=== PATIENT | female | born 2005 | race Two or more races ===

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

== ENCOUNTER 2024-02-09 10:29 | Outpatient (AMB) | payer OTHER, SELFPAY ==
--- NOTE | 2024-02-09 10:31 | A.OFFVIS_ITS ---
Vital Signs 02/09/24 10:35 Height 5 ft 2 in Weight 96 lb BMI 17.6 BP 100/60 Intake Visit Reasons: excessive and frequent menses/Referral Loading Machine Operator Services: Loading Machine Operator Present Information Interpreted: clinical only Powder And Primer Canning Leader: Powder And Primer Canning Leader Present Allergies Penicillins Allergy (Intermediate, Verified 02/09/24 10:35) rash Medication List - Last Reconciled 02/09/24 by Sydney Méndez CNM ascorbate calcium (vitamin C) 500 mg PO DAILY famotidine (Pepcid) 20 mg PO BEDTIME iron fum,ps-FA-vit B,C#18-Lact 130 mg iron -1,250 mcg (Fusion Plus) 1 cap PO BEDTIME metoprolol succinate ER 12.5 mg (1/2 x 25 mg) PO DAILY 90 days Is last menstrual period known: Yes Last menstrual period: 02/07/24 HPI HPI excessive and frequent menses/Referral: Details: Patient is seen here as a referral from her new primary care provider and there were records that were also forwarded from her pediatric providers in [place]. She has a history of heavy periods for which this appointment is made but today she denies heavy periods she says they were heavier last year but they are much better now. She had a history of being iron deficient. I did review her recent CBC which is negative and I also reviewed all of the records that were forwarded. She has upcoming appointments with cardiology for palpitations and she is on a lower dose of metoprolol since her last [facility] visit. She is also on a medication for her stomach which she says is helping and she has an upcoming appointment with Gastroenterology either it did review with her that she had negative workup in [place] for scoliosis and for genetic abnormalities and for any clotting disorders as well. The patient is not sexually active and has no plans to be she reports her LMP is starting 2 days ago and not being all that heavy at usually lasts about 5 days. Her previous period started January 07 and it also lasted 5 days as did her period in November the around the same time of the month. She says she was on control pills to manage her periods before but she did not like them because they made her nauseous. She is studying Romanian at [employer] and has plans to start studying computer engineering in March also at [employer]. [facility] Medical History Anxiety Knee pain Low iron Surgical History No pertinent past surgical history Family History Paternal Grandmother Diabetes Father Cancer Social History Household Members: Family Both parents involved: No Caregiver staying overnight: No Housing: House Are you a primary customer care team coach to a significant other at home: No Do you presently have visiting nurse or other home services: No 75 years or older and lives alone: No Alcohol intake: never Patient Tobacco Use Status: Never used Tobacco e-Cigarette/Vaping Use: Never Used Current occupational status: unemployed Cognitive needs: No Hearing needs: No Vision needs: Yes (wear glasses) Female Reproductive History Menstrual Age of Menarche: 11 Duration of menses: 3-5 days Date of last menstrual period: 02/07/24 control method: none Total pregnancies: 0 Physical Exam Vital Signs: Last Vital Signs BP 100/60 02/09/24 10:35 BMI result Body Mass Index 17.6 Const General: healthy appearing, comfortable, no acute distress, well developed and alert Nutritional Appearance: average body habitus Orientation/consciousness: patient oriented x3 Limitations: no limitations HEENT Head: Yes normocephalic Neck Neck: Yes normal visual inspection Chest Chest palpation & inspection: normal inspection of the chest Breast/axilla inspection: normal inspection of the breasts and normal inspection of the axillae Breast/axilla palpation: normal palpation of the breasts and normal palpation of the axillae Resp Effort & Inspection: normal respiratory effort GI Inspection: Yes normal to inspection, No Abdominal wall edema and No distended Palpation (GI): Soft to palpation and nontender Other: Pelvic exam completely deferred as patient is virginal and has new complaints of abnormal discharge or indeed abnormal menses at this time. Neuro General: patient oriented x3 Assessment & Plan Assessment & Plan (1) Menorrhagia: Comment: Patient is states this was the case a year ago but is no longer the case and she is no longer having any difficulty with heavy periods. Code(s): N92.0 - Excessive and frequent menstruation with regular cycle Category: Medical Plan -----Discussed in this visit the following: healthy balanced diet, regular and consistent exercise, getting recommended health screens, doing the best she can for her particular health concerns, kegel exercises, pap smear screening and followup recommendations, mammography screening and SBE, normal changes in cycles in her life stage--- . I reviewed self-breast exam I reviewed all of the methods of control and their side effects and how they are used and how they can affect periods and that if her periods started being heavy and crampy and difficult for her again pills or their analogs patches and rings would be the simplest methods to consider prescribing especially as she is still virginal as having an IUD would require pelvic exams and I explained what those involved in detail, and there were different sets of side effects with Depo-Provera and Nexplanon as well. She has no interested in any of these methods at this time.. She has upcoming appointments in the new year with both cardiology and also with Gastroenterology.. She has not citing any particular difficulties today in those areas but she has been evaluated for them and is currently on Pepcid and metoprolol to manage these. She uses pads for her periods I did discuss that there are other options avail able. I reviewed when we start Pap smear screening and the circumstances that would require a sooner pelvic and gynecology exam. These would include becoming sexually active or having an abnormal discharge or indeed if she did have an issue with her periods going forward and needed to be seen she could just call otherwise we could see her next year whether or not she has a pelvic exam at that visit will depend on what needs she may have at the time. I reviewed that her CBC indicated that she is not currently anemic. I also reviewed condoms for safer sex should she become sexually active in the future. Today she did not need a pelvic exam and she reported her periods is not being too heavy or difficult for her so she did not need any medical intervention today other than Education around options for the future, and future expectations about pelvic exams. Records from [place] were all reviewed from her pediatric providers and specialist referrals and also her urgent care visit and primary care visits. Coding Level of Care Code New Pt Level 3 (22775) Diagnoses Menorrhagia N92.0 Time Spent (min) 50 Comment 15 reviewing her records especially from [place],30 speaking w her + PE,5 charting
[2024-02-09 10:35] VITALS: BP 100/60; BMI 17.6
== END 2024-02-09 11:07 | disposition home or self-care (01) ==
LOC: HO.HWSM 10:29
PROVIDERS: PCP Nurse Practitioner Family; Visit Provider Advanced Practice Midwife
DX: N92.0 Excessive and frequent menstruation with regular cycle (principal)
CPT/HCPCS: 99203

== ENCOUNTER → 2024-02-09 10:29 | Outpatient (BNVA) | payer OTHER, SELFPAY | PROVIDERS: PCP Nurse Practitioner Family; Visit Provider Advanced Practice Midwife | DX: N92.0 Excessive and frequent menstruation with regular cycle (principal) | CPT/HCPCS: 99202 ==

== ENCOUNTER 2024-04-14 12:44 | Outpatient (REF) | payer OTHER, SELFPAY ==
[2024-04-14 14:31] LABS: Alanine Aminotransferase 18 U/L (0-31); Albumin Level 4.2 g/dL (3.5-5.0); Alkaline Phosphatase 88 U/L (39-117); Anion Gap 11 (12-20); Aspartate Amino Transferase 20 U/L (5-31); Bilirubin Direct 0.2 mg/dL (0.0-0.5); Bilirubin Total 0.4 mg/dL (0.0-1.0); Blood Urea Nitrogen 13 mg/dL (9-16); Calcium 9.1 mg/dL (8.4-10.2); Carbon Dioxide 25 mmol/L (22-29); Chloride 108 mmol/L (96-108); Estimated Glomerular Filt Rate > 60; Glucose Random 88 mg/dL (60-115); Potassium 3.8 mmol/L (3.3-5.1); Sodium 140 mmol/L (135-145); Total Protein 7.5 g/dL (6.5-8.0)
[2024-04-14 14:46] LABS: TSH reflex Free T4 0.51 uIU/mL (0.32-4.0)
--- OUTSIDE RECORDS SUMMARY | 2024-04-14 17:33 | XMS_ITS | Clinical Summary ---
Author Organization [employer] Address [address] [facility] [address] [place] [address] Care Team Providers Care Rn Transfer Name Role Phone Unavailable Primary Care Provider [...] patient's age to complete this topic Insurance [facility] STANDARD
[2024-04-19 16:03] LABS: Metanephrine, Free 82 pg/mL (<=57); Normetanephrines, Free 75 pg/mL (<=148); Total Metanephrine, Free 157 pg/mL (<=205)
== END 2024-04-14 12:45 | disposition home or self-care (01) ==
LOC: HO.LAB 12:44
PROVIDERS: PCP Nurse Practitioner Family; Visit Provider Internal Medicine Cardiovascular Disease
DX: R00.2 Palpitations (principal)
CPT/HCPCS: 36415; 80048; 80076; 83835; 84443; 93005; 99202

== ENCOUNTER 2024-04-14 12:44 | Outpatient (AMB) | payer OTHER, SELFPAY ==
[2024-04-14 12:53] VITALS: BP 120/80; PULSE 89; BMI 17.3
--- NOTE | 2024-04-14 12:53 | A.OFFVIS_ITS ---
Vital Signs 04/14/24 12:53 Height 5 ft 2 in Weight 94 lb 12.78 oz BMI 17.3 BP 120/80 Blood Pressure Location Lt brachial Position Sitting Pulse 89 Intake Visit Reasons: hair weaver/shi magana/palpitations Intake Note: New patient just moved from [place] was seeing cardiology there for about 3 years c/o palpitations weekly for a few seconds Ginseng Farmer Required: Yes Supervisor Filter Assembly: Supervisor Filter Assembly Present Accompanied by: Aunt Allergies Penicillins Allergy (Intermediate, Verified 02/09/24 10:35) rash Medication List - Last Reconciled 04/14/24 by Ted Moran MD ascorbate calcium (vitamin C) 500 mg PO DAILY famotidine (Pepcid) 20 mg PO BEDTIME iron fum,ps-FA-vit B,C#18-Lact 130 mg iron -1,250 mcg (Fusion Plus) 1 cap PO BEDTIME metoprolol succinate ER 12.5 mg (1/2 x 25 mg) PO DAILY 90 days HPI Comments Details: Thank you for referring Matt in cardiology consultation today for symptoms of palpitations. She is accompanied by her onto acts as readers' advisory service librarian they declined a certified readers' advisory service librarian. Patient says that she has been suffering from symptoms of palpitation for the last 2-3 years. She has been managed by a care attendant in [place]. I do have a copy of hand written Holter report which has no significant arrhythmias and no SVT although there was a question about diagnose of SVT. She also has significant anemia due to iron-deficiency anemia due to menorrhagia which has improved as per the yd after iron therapy and her most recent hemoglobin is 12.9. She describes 2 types of palpitations 1 where she has fluttering in his chest which is most frequent and then 1 rapid heart rate. Symptoms prior to starting medications were happening almost on a daily basis. She would feel these symptoms mostly at rest. Symptoms would last for few seconds. She was then tried on a different medication for palpitations which actually worsened her symptoms. Then she was started on metoprolol at current dose at 12.5 mg b.i.d. which has led to significant improvement in his palpitations and now she gets palpitations only about once a week. She is currently not as bothered by her symptoms. She is concerned about overall health and trying to gain weight. She does not exercise on regular basis. She has about 1 cup of caffeine every day. No alcohol use. No other use of stimulants. She denies any other drug use. She has not had any history of syncope. Denies any shortness of breath, orthopnea, PND, chest pain. I do not see any recent chemistries including TSH in her lab work. She does have a history of anxiety [facility] Medical History Anxiety Knee pain Low iron Surgical History No pertinent past surgical history Family History Paternal Grandmother Diabetes Father Cancer Social History Household Members: Family Both parents involved: No Caregiver staying overnight: No Housing: House Are you a primary patient care provider to a significant other at home: No Do you presently have visiting nurse or other home services: No 75 years or older and lives alone: No Alcohol intake: never Patient Tobacco Use Status: Never used Tobacco e-Cigarette/Vaping Use: Never Used Current occupational status: unemployed Cognitive needs: No Hearing needs: No Vision needs: Yes (wear glasses) Female Reproductive History Menstrual Age of Menarche: 11 Review of Systems Const Denies chills, Denies fatigue, Denies fever(s), Denies frequent falls, Denies weakness, Denies weight gain and Denies weight loss Eyes Denies loss of vision ENT Denies dizziness Card Denies chest pain, Denies leg edema, Denies lightheadedness, Denies palpitations, Denies dyspnea, Denies dyspnea on exertion, Denies orthopnea and Denies other (loss of consciousness) Resp Denies cough, Denies dyspnea, Denies dyspnea on exertion and Denies wheezing GI Denies hematochezia and Denies change in stool character Denies urinary frequency and Denies dysuria Musc Denies abnormal gait, Denies muscle weakness, Denies numbness, Denies radiating pain into limb and Denies tingling Skin/Breast Denies nail changes and Denies rash Neuro Denies abnormal gait, Denies dizziness, Denies frequent falls, Denies loss of vision, Denies memory loss, Denies numbness, Denies tingling and Denies weakness Psych Denies depression and Denies memory loss Endo Denies fatigue and Denies palpitations Ganesh/Lymph Reports easy bruising and Reports other (anemia) Aller/Immun Denies wheezing Physical Exam Vital Signs: Last Vital Signs Pulse 89 04/14/24 12:53 BP 120/80 04/14/24 12:53 BMI result Body Mass Index 17.3 Const General: cooperative, comfortable, no acute distress, alert and awake Nutritional Appearance: thin and underweight Orientation/consciousness: patient oriented x3 Limitations: no limitations HEENT Head: Yes normocephalic and Yes atraumatic Neck Neck: Yes trachea midline, Yes supple and Yes no JVD Resp Effort & Inspection: normal respiratory effort Auscultation: clear to auscultation bilaterally Cardio Jugular venous distension: no JVD Palpation: normal PMI Rate: regular rate Rhythm: regular rhythm Heart sounds: S1 normal heart sound present, S2 normal heart sound present, no click, no gallops, no murmurs and no rubs GI Auscultation: normal bowel sounds Skin General skin exam: no rashes or lesions noted Neuro General: patient oriented x3 and no focal motor deficits Extrem General: Yes no clubbing, cyanosis or edema Psych Appearance: grossly normal Office Procedures EKG Details: EKG shows normal sinus rhythm with normal EKG with no pre-excitation with normal intervals [id number], Complete Assessment & Plan Assessment & Plan (1) Palpitations: Code(s): R00.2 - Palpitations Category: Medical Plan: Symptoms of palpitation this young woman which could be worse when she was significantly anemic as this could potentially be reason for having significant sinus tachycardia and also probably increasing her likelihood of having other arrhythmias. Symptoms sound mostly like she has extra systoles such as PACs and/or PVCs. SVT can not be entirely ruled out. Her symptoms have significantly improved since correction of the anemia and current low-dose metoprolol therapy. We discussed about continuing the same. I have advised her to obtain a 14 day Holter monitor to further assess for the arrhythmias. There was mentioned of possible mitral valve disorder in her although I do not hear an y clicks or murmurs. Will suggest an echocardiogram to further assess for the same. At this point time I have advised her to manage her anxiety little bit better and stress mitigation strategies were discussed. Also avoidance of stimulants such as caffeine and alcohol was discussed. Advised to maintain adequate hydration. Encouraged to participate in regular physical activity. She shows understanding to all of these recommendations. Will obtain TSH, plasma metanephrines and some chemistries to assess for any other obvious abnormalities that may need to be corrected. Will follow up in the clinic in 4 weeks time, sooner p.r.n.. Thank you for allowing me to partake in his care Orders: Orders Liver Panel Today R00.2 - Palpitations CA echo transthoracic complete Today R00.2 - Palpitations TSH reflex Free T4 Today R00.2 - Palpitations Metanephrines, Plasma Today R00.2 - Palpitations Basic Metabolic Panel Today R00.2 - Palpitations ECG 14 day holter monitor Today R00.2 - Palpitations Coding Level of Care Code New Pt Level 4 (61903) Diagnoses Palpitations R00.2 CPT Codes EKG - CPT: 07515-[id number], Complete ([id number])
--- OUTSIDE RECORDS SUMMARY | 2024-04-14 16:37 | XMS_ITS | Clinical Summary ---
Author Organization [employer] Address [address] [place] [address] Care Team Providers Care Offshore Wind Turbine Technician Name Role Phone Unavailable Primary Care Provider Unavailabl e Social History Tobacco Use Types Packs/Day Years Used Date Smoking Tobacco: Never Assessed Comments Unknown Sex and Gender Information Value Date Recorded Sex Assigned at Female 10/08/2023 3:55 PM EDT Legal Sex Female 3:48 PM EDT Gender Identity Female 10/08/2023 3:55 PM EDT Sexual Orientation Don't know 10/08/2023 3: 55 PM EDT Plan of Treatment Health Maintenance Due Date Last Done Comments Chlamydia and Gonorrhea Screening 2004 Depression Screening 2004 HIV Screening 2004 SDOH Screening 2004 Fluoride Varnish 04/07/2005 MMR Vaccines (1 of 1 - Stand delfino series) 2005 Alcohol/Substance Use Screening 2016 Tobacco Screening 2016 Varicella Vaccines (1 of 2 - 13+ 2-dose series) 2017 Family Planning (PISQ) 08/06/2019 HPV Vaccines (1 - 3-dose series) 08/06/2019 Hepatitis C Screening 2022 DTaP/Tdap/Td Vaccines (1 - Tdap) 08/06/2023 Hepatitis B Vaccines (1 of 3 - 19+ 3-dose series) 08/06/2023 COVID-19 Vaccine (1 - 2023-2 5 season) 2023 Influenza Vaccine (#1) 2023 Zoster Vaccines (1 of 2) 2054 RSV Patients and Pa tients Aged 60 years or older (1 - 1-dose 75+ series) 08/06/2079 HIB Vaccines Aged Out No longer eligi ble based on patient's age to complete this topic Hepatitis A Vaccines Aged Out No long er eligible based on patient's age to complete this topic IPV Vaccines Aged Out No longer eligi ble based on patient's age to complete this topic Meningococcal Vaccine Aged Out No kristine lane eligible based on patient's age to complete this topic Pneumococcal Vaccine: Pediat rics (0 to 5 Years) and At-Risk Patients (6 to 49) Years) Aged Out No longer eligible b ased on patient's age to complete this topic RSV under 20 months Aged Out No longe r eligible based on patient's age to complete this topic Rotavirus Vaccines Aged Out No longer eligible based on patient's age to complete this topic Insurance [facility]
== END 2024-04-14 13:30 | disposition home or self-care (01) ==
PROVIDERS: PCP Nurse Practitioner Family; Visit Provider Internal Medicine Cardiovascular Disease
DX: R00.2 Palpitations (principal)
CPT/HCPCS: 93010; 99204

== ENCOUNTER → 2024-06-08 07:44 | Outpatient (REF) | payer OTHER, SELFPAY ==
--- OUTSIDE RECORDS SUMMARY | 2024-06-08 07:48 | XMS_ITS | Clinical Summary ---
Author Organization [employer] Address [address] [facility] [address] [place] [address] Care Team Providers Care Format Proofreader Name Role Phone Unavailable Primary Care Provider [...] patient's age to complete this topic Insurance [facility] STANDARD
--- NOTE | 2024-06-08 07:51 | CA_ITS ---
Transthoracic Echocardiogram Patient (Last, First, Middle): Matt Kamara, Gender: Female Date of : 2005 Age: 18 Procedure Date: 06/08/2024 Procedure Type: Transthoracic Echocardiogram Location: OP Height: 157.48 cm Weight: 43.55 kg BSA: 1.40 m2 Heart Rate: 91 bpm BP: 104 / 58 mmHg Ent Consultant: TO/RC Referring MD: Ted Moran MD Plumbing And Heating Contractor: Ted Moran MD Symptoms: R00.2 - Palpitations Study Quality: Adequate ECG Rhythm: Sinus Conclusions: - Normal study Findings Left Ventricle Normal left ventricular size, thickness, and systolic function. The visually estimated ejection fraction is between 55-60%. Diastolic function is normal for age. Right Ventricle Normal right ventricular cavity size and systolic function. Atria Both atria are normal in size. There is no evidence of interatrial shunt. Aortic Valve Normal aortic valve structure and function. There is no aortic valve stenosis. There is no aortic valve regurgitation. Mitral Valve Normal mitral valve structure and function. There is trace mitral valve regurgitation. There is no mitral valve stenosis. Pulmonic Valve The pulmonic valve is likely normal. There is trace pulmonic valve regurgitation. Tricuspid Valve Normal tricuspid valve structure. There is trace tricuspid valve regurgitation. The right ventricular systolic pressure is normal. The right ventricular systolic pressure is 22 mmHg. Normal right atrial pressure. There is no evidence of pulmonary hypertension. Great Vessels All visible segments of the aorta are normal in size. The pulmonary artery was not well visualized. Venous The inferior vena cava is normal in size and collapses greater than 50% with inspiration. Pericardium/Pleural There is no evidence of pericardial effusion. Prior Study Comparison No prior study available for comparison. Measurements 2D Linear Measurements IVSd: 0.70 0.6-0.9/0.6-1.0 cm LVIDd: 3.86 3.9-5.3/4.2-5.9 cm LVIDd Index: 2.76 2.4-3.2/2.2-3.1 cm/m2 LVIDs: 2.25 2.0-3.6 cm LVPWd: 0.57 0.7-1.1 cm LA Diam: 2.30 2.7-3.8/3.0-4.0 cm LAIDs Index: 1.64 1.5-2.3 cm/m2 LV Mass: 80.84 67-162/88-224 g LV Mass Index: 57.74 43-95/49-115 g/m2 LVOT Diam: 1.90 3.0+(-)1.3 cm 2D Systolic Function EF 4C: 56.50 >55% EF 2C: 60.90 >55% EF BiP: 58.80 >55% Mitral Valve MV Pk E: 0.86 MV PK A: 0.44 MV Decel Time: 204.00 E/A: 2.00 E'Lateral: 14.40 E'Medial: 13.70 E/E' Med: 6.30 E/E' Lat: 6.00 PHT: 60.00 MVA PHT: 3.67 Decel Wagoner: 4.23 Aortic Valve AoV Pk Miguel: 1.25 AoV Mn Miguel: 0.85 AoV VTI: 0.25 AoV Pk Grad: 6.00 Aov Mn Grad: 3.00 ROSALINA Cont.VTI: 2.07 LVOT LVOT Pk Miguel: 1.03 LVOT Mn Miguel: 0.69 LVOT VTI: 0.18 LVOT Pk Grad: 4.00 LVOT Mn Grad: 2.00 LVOT Diam: 1.90 LVOT Area: 2.84 Diastolic Function MV Pk E: 0.86 MV Pk A: 0.44 E/A: 2.00 E'Medial: 13.70 E/E' Med: 6.30 E' Laterial: 14.40 E/E' Lat: 6.00 Right Ventricle TAPSE (mm): 21.20 TVS' Miguel: 13.30 Tricuspid Valve TR Pk Miguel: 2.16 TR Pk Grad: 19.00 RA Press: 3.00 RVSP: 22.00 Great Vessels Aorta Sinus of Valsalva: 2.50 2.0-3.5 cm Ao Asc: 2.20 2.1-3.4 cm Ao Arch: 2.10 Updated in Other Vendor System with Status of Final Ted Moran MD electronically signed on 06/08/2024 4:38:43 PM with status of Final
== END ==
LOC: HO.CARD 07:44
PROVIDERS: PCP Nurse Practitioner Family; Visit Provider Internal Medicine Cardiovascular Disease
DX: R00.2 Palpitations (principal)
CPT/HCPCS: 93246; 93306

== ENCOUNTER → 2024-06-08 07:51 | Outpatient (BNV) | payer OTHER, SELFPAY | PROVIDERS: PCP Nurse Practitioner Family; Visit Provider Internal Medicine Cardiovascular Disease | DX: R00.2 Palpitations (principal) | CPT/HCPCS: 93306 ==

== ENCOUNTER 2024-06-30 08:52 | Outpatient (AMB) | payer OTHER, SELFPAY ==
[2024-06-30 09:09] VITALS: BP 80/62; PULSE 84; BMI 17.4
--- NOTE | 2024-06-30 09:09 | A.OFFVIS_ITS ---
Vital Signs 06/30/24 09:09 Height 5 ft 2 in Weight 95 lb 3.835 oz BMI 17.4 BP 80/62 L Blood Pressure Location Lt brachial Position Sitting Pulse 84 Pulse Source Pulse Oximeter Intake Visit Reasons: follow up after testing Wet Roaster Required: No Veterinary Manager: Veterinary Manager Present Allergies Penicillins Allergy (Intermediate, Verified 06/30/24 09:11) rash Medication List - Last Reconciled 06/30/24 by Ame Samson NP-C ascorbic acid (vitamin C) (Vitamin C) 500 mg PO DAILY famotidine (Pepcid) 20 mg PO BEDTIME metoprolol succinate ER 12.5 mg (1/2 x 25 mg) PO DAILY 90 days HPI HPI follow up after testing: Details: Starr is a 18 yo female who is being evaluated for heart palpitations. On last visit an Echocardiogram and holter monitor were ordered and she now presents for follow up. Today she reports that she experiences approximately three episodes of palpitations per week, where each episode lasts only seconds and occurs without a clear pattern. There is no associated dizziness or lightheadedness, and she is currently on a low dose of metoprolol. Laboratory evaluations, including blood counts and electrolyte levels, are normal, with no present anemia. Lifestyle factors discussed include her daily intake of water and walking as physical activity. Her blood pressure is generally low, and she has been advised to increase fluid intake to mitigate hypotensive symptoms. [facility] Medical History Anxiety Knee pain Low iron Surgical History No pertinent past surgical history Family History Paternal Grandmother Diabetes Father Cancer Social History Household Members: Family Both parents involved: No Caregiver staying overnight: No Housing: House Are you a primary assurance services manager health care to a significant other at home: No Do you presently have visiting nurse or other home services: No 75 years or older and lives alone: No Alcohol intake: never Patient Tobacco Use Status: Never used Tobacco e-Cigarette/Vaping Use: Never Used Current occupational status: unemployed Cognitive needs: No Hearing needs: No Vision needs: Yes (wear glasses) Female Reproductive History Menstrual Age of Menarche: 11 Review of Systems Const All systems reviewed & are unremarkable except as noted in HPI and below ENT Denies dizziness Card Details: brief heart palpitation, lasting seconds Denies chest pain, Denies chest pain at rest, Denies chest pain with activity, Denies rapid heart rate, Denies pedal edema, Denies edema, Denies leg edema, Denies lightheadedness, Denies palpitations, Denies dyspnea, Denies dyspnea on exertion and Denies orthopnea Resp Denies cough, Denies dyspnea and Denies dyspnea on exertion GI Denies hematochezia and Denies change in stool character Musc Denies abnormal gait, Reports limited range of motion, Reports muscle cramps, Denies muscle weakness, Denies numbness, Denies radiating pain into limb, Denies stiffness and Denies tingling Neuro Denies abnormal gait, Denies dizziness, Denies numbness and Denies tingling Endo Denies palpitations Physical Exam Vital Signs: Last Vital Signs Pulse 84 06/30/24 09:09 BP 80/62 L 06/30/24 09:09 BMI result Body Mass Index 17.4 Const Other: petite with thin build General: cooperative, healthy appearing, comfortable and no acute distress Orientation/consciousness: patient oriented x3 Neck Neck: Yes normal visual inspection Resp Effort & Inspection: normal respiratory effort Auscultation: clear to auscultation bilaterally, no rales, no rhonchi and no wheezes Cardio Rate: regular rate Rhythm: regular rhythm Heart sounds: S1 normal heart sound present, S2 normal heart sound present, no murmurs and no rubs Neuro General: patient oriented x3 Extrem General: Yes normal to inspection Psych Appearance: grossly normal Mental Status: mental status grossly normal Speech and movement: Normal speech and movement present Results Reviewed Results Reviewed: Echocardiogram 06/08/24 showed normal study Holter monitor done 06/08/24 for 14 days shows Sinus rhythm with average heart rate 85 b/min, heart rate range 52-165, no atrial fibrillation or flutter, rare PVC, occassional PACs burden 0.4%, brief run, 3 beat, one episode 15 beats long. Assessment & Plan Assessment & Plan (1) Palpitations: Code(s): R00.2 - Palpitations Category: Medical (2) Paroxysmal SVT (supraventricular tachycardia): Code(s): I47.10 - Supraventricular tachycardia, unspecified Category: Medical Plan: Brief SVT noted. Continue Metoprolol. Reduce caffiene. Vagal maneuvers reviewed. (3) Low BP: Code(s): I95.9 - Hypotension, unspecified Category: Medical Plan: Asymptomatic. Increase fluid intake. Plan Test results reviewed with her in detail. Brief SVT noted. The patient will remain on the current dosage of metoprolol, given the brief nature of her palpitations. Due to low blood pressure, dosage increases are not recommended. Hydration and dietary adjustments, including increased salt intake, will be important in managing hypotensive symptoms. Caffeine intake should be low. Further interventions, including medication changes or procedural considerations, will be revisited if symptoms worsen. Cardiology follow-up is planned for six months, with advisories in place should her symptoms escalate. Patient was informed and verbally consented to the use of an ambient scribe for clinic note documentation during this visit. . Coding Level of Care Code Est Pt Level 3 (02409) Complex EM visit Add On G2211 Diagnoses Palpitations R00.2 Paroxysmal SVT (supraventricular tachycardia) I47.10 Low BP I95.9 Time Spent (min) 24
--- OUTSIDE RECORDS SUMMARY | 2024-06-30 09:37 | XMS_ITS | Clinical Summary ---
Author Organization [employer] Address [address] [facility] [address] [place] [address] Care Team Providers Care Claims Auditor Name Role Phone Unavailable Primary Care Provider [...] patient's age to complete this topic Insurance [facility] STANDARD
== END 2024-06-30 09:37 | disposition home or self-care (01) ==
LOC: HO.HCS 08:53
PROVIDERS: PCP Nurse Practitioner Family; Visit Provider Nurse Practitioner Family
DX: R00.2 Palpitations (principal); I47.10 Supraventricular tachycardia, unspecified; I95.9 Hypotension, unspecified
CPT/HCPCS: 99213; G2211

== ENCOUNTER → 2024-06-30 08:52 | Outpatient (BNVA) | payer OTHER, SELFPAY | PROVIDERS: PCP Nurse Practitioner Family; Visit Provider Nurse Practitioner Family | DX: R00.2 Palpitations (principal); I47.10 Supraventricular tachycardia, unspecified; I95.9 Hypotension, unspecified | CPT/HCPCS: 99212 ==

== ENCOUNTER 2025-03-13 14:18 | Outpatient (AMB) | payer OTHER, SELFPAY ==
--- NOTE | 2025-03-13 14:38 | A.OFFVIS_ITS ---
Vital Signs 03/13/25 14:40 Height 5 ft 2 in Weight 94 lb 12.78 oz BMI 17.3 BP 90/56 L Blood Pressure Location Lt brachial Position Sitting Pulse 77 Pulse Source Pulse Oximeter Intake Visit Reasons: r/s 01/05/25 6 mos followup Intake Note: r/s 6mth f/up Antenna Specialist Required: Yes Antenna Specialist Language: Armorer Technician Name: voyce/egyptian Accompanied by: Self / Same As Patient Allergies Penicillins Allergy (Intermediate, Verified 06/30/24 09:11) rash Medication List - Last Reconciled 03/13/25 by Ame Samson NP-C ascorbic acid (vitamin C) (Vitamin C) 500 mg PO DAILY famotidine (Pepcid) 20 mg PO BEDTIME metoprolol succinate ER 25 mg PO DAILY 90 days HPI HPI r/s 01/05/25 6 mos followup: Details: The patient is a 19 year old female presenting for follow-up of heart palpitations. A Holter monitor from a previous visit showed brief supraventricular tachycardia (SVT). She was previously continued on metoprolol and advised to reduce caffeine intake. Since her last visit on 06/30/2024, she reports episodes of rapid heart palpitations occurring about two times per week, lasting for a few seconds each time. She notes that stress or anxiety may be triggers, but there is no distinct pattern. She has not required any emergency room visits and denies other concerning symptoms. She consumes coffee in the morning. Her current medications include metoprolol, Pepcid, and vitamin C. 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 [facility] Medical History Anxiety Knee pain Low iron Surgical History No pertinent past surgical history Family History Paternal Grandmother Diabetes Father Cancer Social History Household Members: Family Both parents involved: No Caregiver staying overnight: No Housing: House Are you a primary care support representative to a significant other at home: No Do you presently have visiting nurse or other home services: No 75 years or older and lives alone: No Alcohol intake: never Patient Tobacco Use Status: Never used Tobacco e-Cigarette/Vaping Use: Never Used Current occupational status: unemployed Cognitive needs: No Hearing needs: No Vision needs: Yes (wear glasses) Female Reproductive History Menstrual Age of Menarche: 11 Review of Systems Const All systems reviewed & are unremarkable except as noted in HPI and below Denies chills, Denies fatigue, Denies fever(s), Denies frequent falls, Denies weakness, Denies weight gain and Denies weight loss ENT Denies dizziness Card Details: brief heart palpitations Denies chest pain, Denies leg edema, Denies lightheadedness, Denies palpitations, Denies dyspnea and Denies dyspnea on exertion Resp Denies cough, Denies dyspnea and Denies dyspnea on exertion GI Denies hematochezia Musc Denies abnormal gait, Denies muscle weakness, Denies numbness, Denies radiating pain into limb and Denies tingling Neuro Denies abnormal gait, Denies dizziness, Denies frequent falls, Denies numbness, Denies tingling and Denies weakness Endo Denies fatigue and Denies palpitations Physical Exam Vital Signs: Last Vital Signs Pulse 77 03/13/25 14:40 BP 90/56 L 03/13/25 14:40 BMI result Body Mass Index 17.3 Const General: cooperative, healthy appearing, comfortable and no acute distress Orientation/consciousness: patient oriented x3 Neck Neck: Yes normal visual inspection Resp Effort & Inspection: normal respiratory effort Auscultation: clear to auscultation bilaterally, no rales, no rhonchi and no wheezes Cardio Jugular venous distension: no JVD Rate: regular rate Rhythm: regular rhythm Heart sounds: S1 normal heart sound present, S2 normal heart sound present, no gallops, no murmurs and no rubs Neuro General: patient oriented x3 Extrem General: Yes normal to inspection Psych Appearance: grossly normal Mental Status: mental status grossly normal Speech and movement: Normal speech and movement present Results Reviewed Results Reviewed: Echocardiogram 06/08/24 showed normal study Holter monitor done 06/08/24 for 14 days shows Sinus rhythm with average heart rate 85 b/min, heart rate range 52-165, no atrial fibrillation or flutter, rare PVC, occassional PACs burden 0.4%, brief run, 3 beat, one episode 15 beats long. Assessment & Plan Assessment & Plan (1) Palpitations: Code(s): R00.2 - Palpitations Category: Medical Plan: Reports of brief heart palpitations lasting sec. Holter monitor done 06/08/2024 showed rare PACs and PVCs with 1 nonsustained fast rate 203 consistent with SVT with aberrancy, symptoms mostly correlated with isolated PACs and PVCs. Echocardiogram was normal study. He has been on metoprolol XL 25 mg daily. Currently reporting ongoing brief episodes of palpitations lasting sec. vagal maneuvers reviewed. Will continue current treatment unless she starts having longer episodes of palpitations. Emergency care if needed for sustained rapid heart rates. Cardiology follow-up 1 year, sooner if needed. (2) Paroxysmal SVT (supraventricular tachycardia): Code(s): I47.10 - Supraventricular tachycardia, unspecified Category: Medical Plan: Brief SVT noted. Continue Metoprolol. Reduce caffiene. Vagal maneuvers reviewed. (3) Low BP: Code(s): I95.9 - Hypotension, unspecified Category: Medical Plan: Asymptomatic. Increase fluid and salt intake. Plan I reviewed the patient's current status regarding her heart palpitations. I explained that as her episodes of rapid heartbeat are very brief, lasting only seconds, they are not harmful. I advised her that if the episodes were to become prolonged, lasting for minutes or hours, or if her heart rate became 'stuck' fast, this would be a concern requiring a visit to the emergency room for medication to correct the rhythm. I instructed her on techniques to try at home if an episode is prolonged, such as taking a deep breath, holding it, and bearing down, which can help slow her heart rhythm. We also discussed her low blood pressure, and I advised her that while it is low, she can manage it by ensuring she drinks enough liquids and includes salt in her diet. I informed her that her condition appears stable at this time. I recommended a follow-up visit in one year for cardiology, with instructions to contact us if she experiences any increase in her palpitations. Patient Instructions: - Continue taking your metoprolol medicine as prescribed. - Your episodes of fast heartbeat are very short and are not harmful at this time. - If your heart starts beating fast and does not stop on its own after several minutes, you should go to the emergency room. - If you have a long episode of fast heartbeats, you can try taking a deep breath, holding it, and then bearing down as if having a bowel movement. Repeat this a few times to see if it helps slow your heart down. - Your blood pressure is low. To help with this, make sure to drink plenty of liquids and have some salt in your diet. Drinks like Gatorade or Powerade can help if you feel lightheaded. - Be aware that drinking more coffee might cause you to have more palpitations. - We will schedule a follow-up appointment with cardiology for you in one year. - Please let us know if your palpitations start happening more often or last longer. Patient was informed and verbally consented to the use of an ambient scribe for clinic note documentation during this visit. Visit time spent on chart review, interview, assessment, orders, documentation. Coding Level of Care Code Est Pt Level 3 (03704) Add On Problem Visit Only Diagnoses Palpitations R00.2 Paroxysmal SVT (supraventricular tachycardia) I47.10 Low BP I95.9 Time Spent (min) 22
[2025-03-13 14:40] VITALS: BP 90/56; PULSE 77; BMI 17.3
--- OUTSIDE RECORDS SUMMARY | 2025-03-13 16:42 | XMS_ITS | Clinical Summary ---
Author Organization [employer] Address [address] [facility] [address] [place] [address] Care Team Providers Care Sales Representative Publications Name Role Phone Unavailable Primary Care Provider [...] 2004 HIV Screening 2004 SDOH Screening 2004 Disability Screening 2004 Alcohol/Substance Use Screening 2016 Tobacco Screening 2016 Family Planning (PISQ) 08/06/2019 HPV Vaccines (1 - 3-dose series) 08/06/2019 Meningococcal B Vaccine (1 o f 2 - Standard) 2020 Hepatitis C Screening 2022 DTaP/Tdap/Td Vaccines (1 - Tdap) 08/06/2023 Hepatitis B Vaccines (1 of 3 - 19+ 3-dose series) 08/06/2023 COVID-19 Vaccine (1 - 2024-2 6 season) 2024 Influenza Vaccine (#1) 2024 Zoster Vaccines (1 of 2) 2054 RSV [...] Years) and At-Risk Patients (6 to 49) Years Aged Out No longer eligible b ased on patient's age to complete this topic RSV under 20 months Aged Out No longe r eligible based on patient's age to complete this topic Rotavirus Vaccines Aged Out No longer eligible based on patient's age to complete this topic Insurance [facility] STANDARD
== END 2025-03-13 14:59 | disposition home or self-care (01) ==
LOC: HO.HCS 14:19
PROVIDERS: PCP Nurse Practitioner Family; Visit Provider Nurse Practitioner Family
DX: R00.2 Palpitations (principal); I47.10 Supraventricular tachycardia, unspecified; I95.9 Hypotension, unspecified
CPT/HCPCS: 99213

== ENCOUNTER → 2025-03-13 14:18 | Outpatient (BNVA) | payer OTHER, SELFPAY | PROVIDERS: PCP Nurse Practitioner Family; Visit Provider Nurse Practitioner Family | DX: R00.2 Palpitations (principal); I47.10 Supraventricular tachycardia, unspecified; I95.9 Hypotension, unspecified; Z79.899 Other long term (current) drug therapy | CPT/HCPCS: 99212 ==